=== PATIENT | female | born 1945 | race African-American/Black ===

== ENCOUNTER → 2019-11-10 | Outpatient (CLI) | payer OTHER, BC ==
[~2019-11-10] MED LIST: ADULT LOW DOSE81 MG PO; ALDACTONE25 MG PO; ALLEGRA180 MG PO; ALTACE10 M1 PO; CALCIUM 500 +1 EAC5 PO; CHANTIX1 MG PO; COREG PO; FISHOIL; FUROSEMIDE 40 M40 M1 PO; GARLIC OIL1 EACH PO; LANOXIN 0.120.125 M2 PO; LIPITOR10 MG PO; MULTIVITAMINS; TAPAZOLE5 MG PO; VITAMIN C + RO500 MG PO
== END ==
LOC: SJCVC 13:09
PROVIDERS: ATTEND Internal Medicine Cardiovascular Disease
DX: Z45.02 Encounter for adjustment and management of automatic implantable cardiac defibrillator (principal); R94.31 Abnormal electrocardiogram [ECG] [EKG]; I42.8 Other cardiomyopathies; I10 Essential (primary) hypertension; E11.9 Type 2 diabetes mellitus without complications; Z95.810 Presence of automatic (implantable) cardiac defibrillator; Z79.899 Other long term (current) drug therapy; Z87.891 Personal history of nicotine dependence

== ENCOUNTER → 2020-11-28 | Outpatient (CLI) | payer OTHER, BC | LOC: SJCVCIMAG 11-16 09:16 | PROVIDERS: ATTEND Internal Medicine Cardiovascular Disease | DX: I34.0 Nonrheumatic mitral (valve) insufficiency (principal); I42.8 Other cardiomyopathies; I10 Essential (primary) hypertension; E11.9 Type 2 diabetes mellitus without complications; E78.5 Hyperlipidemia, unspecified; Z87.891 Personal history of nicotine dependence; Z95.810 Presence of automatic (implantable) cardiac defibrillator; Z79.82 Long term (current) use of aspirin; Z79.899 Other long term (current) drug therapy; Z88.8 Allergy status to other drugs, medicaments and biological substances ==